=== PATIENT | female | born 1945 | race Hispanic/Latino ===

== ENCOUNTER → 2021-09-09 | Outpatient (CLI) | payer MEDICARE, OTHER ==
[~2021-09-09] MED LIST: Aspirin PO; FERR324T10 PO; FEXO1TAB8 PO; FLUO40CA49 PO; HYDR-2132 PO; PREM625 PO; SOLI5 PO; TRAM50TA4 PO
== END | disposition home or self-care (01) ==
LOC: OIH 13:23
PROVIDERS: ATTEND Internal Medicine Cardiovascular Disease
DX: Z13.6 Encounter for screening for cardiovascular disorders (principal)
CPT/HCPCS: 75571

== ENCOUNTER → 2021-09-13 | Outpatient (CLI) | payer MEDICARE | END | disposition home or self-care (01) | LOC: SHCH 10:16 | PROVIDERS: ATTEND Internal Medicine Cardiovascular Disease | DX: I35.8 Other nonrheumatic aortic valve disorders (principal); R55 Syncope and collapse | CPT/HCPCS: 93306; 93356 ==